=== PATIENT | male | born 1965 ===

== ENCOUNTER 2016-08-06 12:42 | Emergency (ER) | payer OTHER | END 2016-08-06 15:05 | disposition home or self-care (01) | LOC: ER1 12:42 | DX: S02.40EA Zygomatic fracture, right side, initial encounter for closed fracture (principal); S00.81XA Abrasion of other part of head, initial encounter; F17.210 Nicotine dependence, cigarettes, uncomplicated; Z23 Encounter for immunization; W22.8XXA Striking against or struck by other objects, initial encounter; Y92.69 Other specified industrial and construction area as the place of occurrence of the external cause; Y99.0 Civilian activity done for income or pay | CPT/HCPCS: 70450; 70486; 90471; 90715; 99283 ==